=== PATIENT | male | born 1990 | race Caucasian/White ===

== ENCOUNTER 2016-09-11 13:34 | Emergency (ER) | payer BC, OTHER ==
[~2016-09-11 13:34] MED LIST: ADVAIR 1001 DISK W/D; ALBUTEROL17 GM INH; CONCERTA PO; SINGULAIR
[2016-09-11] MEDS ORDERED: AMOXICILLIN (13:38)
== END 2016-09-11 14:10 | disposition home or self-care (01) ==
LOC: SED 13:34
DX: S01.111A Laceration without foreign body of right eyelid and periocular area, initial encounter (principal); S00.83XA Contusion of other part of head, initial encounter; F90.9 Attention-deficit hyperactivity disorder, unspecified type; X58.XXXA Exposure to other specified factors, initial encounter; Y92.009 Unspecified place in unspecified non-institutional (private) residence as the place of occurrence of the external cause
CPT/HCPCS: 99283